=== PATIENT | male | born 1960 | race Caucasian/White ===

== ENCOUNTER 2020-12-07 03:05 | Emergency (ER) | payer OTHER | END 2020-12-07 04:20 | disposition home or self-care (01) | LOC: ERS 03:05 | DX: I82.412 Acute embolism and thrombosis of left femoral vein (principal); F17.210 Nicotine dependence, cigarettes, uncomplicated ==

== ENCOUNTER 2021-11-08 14:02 | Outpatient (CLI) | payer OTHER | END 2021-11-08 14:03 | disposition home or self-care (01) | LOC: BICCT 14:02 → CT 14:03 | PROVIDERS: ATTEND Urology | DX: R31.29 Other microscopic hematuria (principal); N28.1 Cyst of kidney, acquired; N28.89 Other specified disorders of kidney and ureter | CPT/HCPCS: 74176 ==

== ENCOUNTER 2021-11-11 21:35 | Inpatient (IN) | payer OTHER ==
[2021-11-11 23:24] LABS: #Basophils 0.1 thou/uL (0.0-0.2); #Eosinphils 0.5 thou/uL (0.0-0.7); #Lymphocytes 2.3 thou/uL (1.20-3.40); #Monocytes 0.9 thou/uL (0.11-0.59); #Neutrophils 5.1 thou/uL (1.40-6.50); %Basophils 0.9 % (0.0-1.0); %Eosinophils 5.6 % (0.0-10.0); %Lymphocytes 26.1 % (21.0-51.0); %Monocytes 10.2 % (0.0-10.0); %Neutrophils 57.3 % (42.0-75.0); Hemoglobin 16.5 g/dL (14.0-18.0); Mean Corpuscular HGB CONC 34.5 g/dL (32.0-36.0); Mean Corpuscular Hemoglobin 35.5 pg (27.0-31.0); Mean Platelet Volume 7.8 fL (7.4-10.4); Platelet Count 139 thou/uL (130-400); RBC Distribution Width 12.6 % (11.5-14.5); Red Blood Cell (RBC) Count 4.65 mill/uL (4.70-6.10); White Blood Cell (WBC) Count 8.8 thou/uL (4.8-10.8)
[2021-11-11 23:46] LABS: ALT (SGPT) 18 U/L (8-55); AST (SGOT) 22 U/L (5-34); Albumin 3.8 g/dL (3.4-4.8); Alkaline Phosphatase 95 U/L (40-110); Anion Gap 12 mmol/L (10-20); BUN (Urea Nitrogen) 16 mg/dL (8.4-25.7); Bilirubin, Total 0.6 mg/dL (0.2-1.2); Calc. Creatinine Clearance 0 mL/min (70-130); Calcium 9.3 mg/dL (7.8-10.44); Carbon Dioxide 23 mmol/L (23-31); Chloride 106 mmol/L (98-107); Globulin 3.2 g/dL (2.4-3.5); Glucose 116 mg/dL (80-115); Potassium 4.4 mmol/L (3.5-5.1); Sodium 137 mmol/L (136-145)
[2021-11-12 00:08] LABS: CKMB 3.7 ng/mL (0-6.6)
[2021-11-12] MEDS ORDERED: Enoxaparin Sodium 100 MG/ML SYRINGE ONE ×2 (00:51→00:54)
[2021-11-12] MEDS ORDERED: Enoxaparin Sodium 30 MG/0.3 ML SYRINGE ONE ×2 (00:51→00:54)
[2021-11-12 01:29] LABS: SARS-CoV-2 NAA Rapid Test Not Detected (NotDetected)
[2021-11-12 03:12] LABS: Troponin I 0.071 ng/mL (< 0.028)
[2021-11-12 07:03] LABS: Troponin I 0.049 ng/mL (< 0.028)
[2021-11-12] MEDS ORDERED: Calcium Carbonate 500 MG ChewTAB PO PRN (08:08)
[2021-11-12] MEDS ORDERED: Guaifenesin DM 100-10/5 ML UDCUP PO PRN (08:08)
[2021-11-12] MEDS ORDERED: Loperamide HCl 2 MG CAP PO PRN (08:08)
[2021-11-12] MEDS ORDERED: Acetaminophen 325 MG TAB PO PRN (08:08)
[2021-11-12] MEDS ORDERED: Senokot S 8.6-50 MG TAB PO PRN (08:08)
[2021-11-12] MEDS ORDERED: Ondansetron PF 4 MG/2 ML Vial IVP PRN (08:08)
[2021-11-12] MEDS ORDERED: Bisacodyl 10 MG SUPP PR PRN (08:08)
[2021-11-12] MEDS ORDERED: Ondansetron ODT 4 MG TAB PO PRN (08:08)
[2021-11-12] MEDS ORDERED: Famotidine 20 MG TAB ONE (08:42)
[2021-11-12] MEDS ORDERED: Folic Acid 1 MG TAB ONE (08:42)
[2021-11-12] MEDS: Famotidine 20 MG TAB PO SCH ×2 (09:30→20:15)
[2021-11-12] MEDS: Folic Acid 1 MG TAB PO SCH (09:31)
[2021-11-12] MEDS: Cyanocobalamin (Vitamin B-12) 1,000 MCG TAB PO SCH (09:53)
[2021-11-12] MEDS: Enoxaparin Sodium 60 MG/0.6 ML SYRINGE SC SCH ×2 (11:39→20:15)
[2021-11-12 12:26] VITALS: BMI 34.0
[2021-11-13 04:57] LABS: #Basophils 0.1 thou/uL (0.0-0.2); #Eosinphils 0.5 thou/uL (0.0-0.7); #Lymphocytes 2.1 thou/uL (1.20-3.40); #Monocytes 0.7 thou/uL (0.11-0.59); #Neutrophils 5.5 thou/uL (1.40-6.50); %Basophils 0.7 % (0.0-1.0); %Eosinophils 5.4 % (0.0-10.0); %Lymphocytes 23.9 % (21.0-51.0); %Monocytes 8.2 % (0.0-10.0); %Neutrophils 61.8 % (42.0-75.0); Hemoglobin 16.9 g/dL (14.0-18.0); Mean Corpuscular Hemoglobin 35.1 pg (27.0-31.0); Mean Platelet Volume 7.5 fL (7.4-10.4); Platelet Count 156 thou/uL (130-400); RBC Distribution Width 12.5 % (11.5-14.5); Red Blood Cell (RBC) Count 4.83 mill/uL (4.70-6.10); White Blood Cell (WBC) Count 8.9 thou/uL (4.8-10.8)
[2021-11-13 05:10] LABS: Prothrombin Time 13.4 sec (12.0-14.7)
[2021-11-13 05:20] LABS: D-Dimer Test 10.31 *mcg/mL (0.27-0.43)
[2021-11-13 05:22] LABS: ALT (SGPT) 15 U/L (8-55); AST (SGOT) 19 U/L (5-34); Albumin 3.5 g/dL (3.4-4.8); Alkaline Phosphatase 84 U/L (40-110); Anion Gap 9 mmol/L (10-20); BUN (Urea Nitrogen) 13 mg/dL (8.4-25.7); Calc. Creatinine Clearance 123 mL/min (70-130); Calcium 8.9 mg/dL (7.8-10.44); Carbon Dioxide 24 mmol/L (23-31); Chloride 105 mmol/L (98-107); Globulin 3.5 g/dL (2.4-3.5); Glucose 89 mg/dL (80-115); Sodium 134 mmol/L (136-145)
[2021-11-13] MEDS: Enoxaparin Sodium 120 MG/0.8 ML SYRINGE SC SCH ×2 (09:51→20:21)
[2021-11-13] MEDS: Cyanocobalamin (Vitamin B-12) 1,000 MCG TAB PO SCH (09:52)
[2021-11-13] MEDS: Folic Acid 1 MG TAB PO SCH (09:52)
[2021-11-13] MEDS: Famotidine 20 MG TAB PO SCH ×2 (09:52→20:21)
[2021-11-13] MEDS: HYDROcodone/Acetaminophen 5/325 mg Tablet PO PRN ×3 (10:19→20:21)
[2021-11-13] MEDS: Zolpidem Tartrate 5 MG TAB PO PRN (23:01)
[2021-11-14] MEDS: HYDROcodone/Acetaminophen 5/325 mg Tablet PO PRN ×3 (09:50→21:12)
[2021-11-14] MEDS: Folic Acid 1 MG TAB PO SCH (09:51)
[2021-11-14] MEDS: Famotidine 20 MG TAB PO SCH ×2 (09:51→21:12)
[2021-11-14] MEDS: Cyanocobalamin (Vitamin B-12) 1,000 MCG TAB PO SCH (09:51)
[2021-11-14] MEDS: Apixaban 5 MG TAB PO SCH ×2 (09:51→21:11)
[2021-11-14] MEDS: Zolpidem Tartrate 5 MG TAB PO PRN (21:13)
[2021-11-15] MEDS: Folic Acid 1 MG TAB PO SCH (09:11)
[2021-11-15] MEDS: Apixaban 5 MG TAB PO SCH (09:11)
[2021-11-15] MEDS: Famotidine 20 MG TAB PO SCH (09:11)
[2021-11-15] MEDS: Cyanocobalamin (Vitamin B-12) 1,000 MCG TAB PO SCH (09:11)
[2021-11-15 10:29] LABS: #Basophils 0.1 thou/uL (0.0-0.2); #Eosinphils 0.4 thou/uL (0.0-0.7); #Lymphocytes 1.8 thou/uL (1.20-3.40); #Monocytes 0.5 thou/uL (0.11-0.59); #Neutrophils 4.2 thou/uL (1.40-6.50); %Basophils 1.1 % (0.0-1.0); %Eosinophils 5.8 % (0.0-10.0); %Lymphocytes 25.6 % (21.0-51.0); %Neutrophils 60.6 % (42.0-75.0); Hemoglobin 18.1 g/dL (14.0-18.0); Mean Corpuscular HGB CONC 33.5 g/dL (32.0-36.0); Mean Platelet Volume 7.2 fL (7.4-10.4); Platelet Count 189 thou/uL (130-400); RBC Distribution Width 12.5 % (11.5-14.5); Red Blood Cell (RBC) Count 5.16 mill/uL (4.70-6.10)
[2021-11-15 11:03] LABS: Anion Gap 12 mmol/L (10-20); BUN (Urea Nitrogen) 14 mg/dL (8.4-25.7); Calc. Creatinine Clearance 118 mL/min (70-130); Calcium 9.1 mg/dL (7.8-10.44); Carbon Dioxide 23 mmol/L (23-31); Chloride 105 mmol/L (98-107); Glucose 127 mg/dL (80-115); Potassium 4.2 mmol/L (3.5-5.1); Sodium 136 mmol/L (136-145)
[2021-11-15] MEDS: HYDROcodone/Acetaminophen 5/325 mg Tablet PO PRN (11:46)
[2021-11-15 11:57] VITALS: BP 141/70; TEMP 98.9
== END 2021-11-15 12:40 | disposition home or self-care (01) | DRG 280 ==
LOC: ERS 21:35 → ERHOLD 11-12 02:14 → OBSVTOIN 11-12 08:07 → 2NO 11-12 11:15
PROVIDERS: ADMIT Student in an Organized Health Care Education/Training Program; ATTEND Internal Medicine
DX: I82.412 Acute embolism and thrombosis of left femoral vein (principal); I26.99 Other pulmonary embolism without acute cor pulmonale; I21.A1 Myocardial infarction type 2; I82.442 Acute embolism and thrombosis of left tibial vein; I82.432 Acute embolism and thrombosis of left popliteal vein; E66.9 Obesity, unspecified; D75.89 Other specified diseases of blood and blood-forming organs; Z68.34 Body mass index [BMI] 34.0-34.9, adult
CPT/HCPCS: 36415; 71045; 71275; 80048; 80053; 82274; 82553; 83880; 84484; 85025; 85379; 85610; 93005; 93306; 96372; J1650; U0002

== ENCOUNTER 2023-12-23 00:13 | Emergency (ER) | payer OTHER ==
[2023-12-23 00:53] LABS: #Basophils 0.1 thou/uL (0.0-0.2); #Eosinphils 0.4 thou/uL (0.0-0.7); #Monocytes 0.5 thou/uL (0.11-0.59); #Neutrophils 3.7 thou/uL (1.40-6.50); %Basophils 0.9 % (0.0-1.0); %Eosinophils 5.9 % (0.0-10.0); %Lymphocytes 30.6 % (21.0-51.0); %Monocytes 7.9 % (0.0-10.0); %Neutrophils 54.6 % (42.0-75.0); Hematocrit 41.6 % (42.0-52.0); Mean Corpuscular HGB CONC 33.7 g/dL (32.0-36.0); Mean Corpuscular Hemoglobin 34.6 pg (27.0-31.0); Mean Corpuscular Volume 102.7 fl (78.0-98.0); Mean Platelet Volume 9.4 fL (7.4-10.4); Platelet Count 182 10x3/uL (130-400); RBC Distribution Width 13.3 % (11.5-14.5); Red Blood Cell (RBC) Count 4.05 mill/uL (4.70-6.10); White Blood Cell (WBC) Count 6.7 10x3/uL (4.8-10.8)
[2023-12-23 01:35] LABS: ALT (SGPT) 20 U/L (8-55); AST (SGOT) 26 U/L (5-34); Albumin 3.8 g/dL (3.4-4.8); Alkaline Phosphatase 107 U/L (40-110); Anion Gap 14 mmol/L (10-20); BUN (Urea Nitrogen) 22 mg/dL (8.4-25.7); Bilirubin, Total 0.3 mg/dL (0.2-1.2); Calc. Creatinine Clearance 0 mL/min (70-130); Calcium 9.1 mg/dL (7.8-10.44); Carbon Dioxide 25 mmol/L (23-31); Chloride 107 mmol/L (98-107); Estimated GFR 65; Globulin 3.4 g/dL (2.4-3.5); Glucose 91 mg/dL (80-115); Potassium 4.6 mmol/L (3.5-5.1); Protein, Total 7.2 g/dL (5.8-8.1); Sodium 141 mmol/L (136-145)
[2023-12-23 03:05] LABS: Troponin I 0.015 ng/mL (< 0.028)
[2023-12-23 04:15] LABS: Magnesium 2.1 mg/dL (1.6-2.6)
[2023-12-23 04:28] LABS: INR-International Normal Ratio 0.9; Prothrombin Time 11.9 sec (12.0-14.7)
[2023-12-23] MEDS ORDERED: Apixaban 5 MG TAB ONE (06:47)
[2023-12-23] MEDS ORDERED: HYDROcodone/Acetaminophen 10/325 mg Tablet ONE (07:00)
[2023-12-23] MEDS ORDERED: Iopamidol 370 76% 100 ML VIAL ONE (10:24)
== END 2023-12-23 10:34 | disposition home or self-care (01) ==
LOC: ERS 00:13
DX: I82.402 Acute embolism and thrombosis of unspecified deep veins of left lower extremity (principal); Z86.711 Personal history of pulmonary embolism; Z87.891 Personal history of nicotine dependence
CPT/HCPCS: 36415; 71275; 80053; 83735; 83880; 84484; 85025; 85379; 85610; 85730; 93005; Q9967

== ENCOUNTER 2024-12-23 10:07 | Outpatient (CLI) | payer OTHER | END 2024-12-23 10:08 | disposition home or self-care (01) | LOC: BICCT 10:07 | DX: N28.1 Cyst of kidney, acquired (principal) | CPT/HCPCS: 36415; 82565 ==